=== PATIENT | male | born 1960 | race Caucasian/White ===

== ENCOUNTER 2017-08-21 21:09 | Emergency (ER) | payer OTHER ==
[~2017-08-21] VITALS: Ht 172.7 cm; Wt 78.1 kg
[~2017-08-21 21:09] MED LIST: EASY TOUCH HYP1 EA10 MC; FOLIC ACID1 MG PO; GLUCOMETER MC; NOVOLIN N100 UNITS/ SC; NOVOLIN,HU100 UNITS1 SC; OXAYDO5 MG PO; PRAVACHOL40 MG PO; Thiamine,Vitamin B1 PO
[2017-08-21 22:12] LABS: HEMATOCRIT 42.1 % (38.0-50.0); HEMOGLOBIN 14.7 G/DL (12.5-16.6); MCH 30.2 PG (29.0-34.0); MCHC 34.9 G/DL (30.0-36.0); MCV 86.6 FL (86-99); PLATELET COUNT 225 K/uL (156-360); RBC DIS.WIDTH-SD 40.8 % (39-53); RED BLOOD COUNT 4.86 M/uL (4.00-5.50); WHITE BLOOD COUNT 9.9 K/uL (4.1-10.2)
[2017-08-21] MEDS ORDERED: CLEOCIN300 MG PO (22:43)
[2017-08-21] MEDS ORDERED: BACTROBAN OINTM22 GM TP (22:44)
[2017-08-21 22:45] LABS: ALBUMIN 4.1 g/dL (3.2-4.8)
[2017-08-21 22:46] LABS: CHLORIDE 101 mEq/L (99-109); POTASSIUM 3.9 mEq/L (3.7-5.4); SODIUM 134 mEq/L (136-147)
[2017-08-21 22:48] LABS: TOTAL PROTEIN 7.1 g/dL (6.4-8.3)
[2017-08-21 22:50] LABS: TOTAL BILIRUBIN 0.9 mg/dL (0.0-1.0)
[2017-08-21 22:51] LABS: ALKALINE PHOSPHATASE 111 IU/L (3-129); GLUCOSE 417 mg/dL (70-99)
[2017-08-21 22:53] LABS: AST (GOT) 12 IU/L (2-34); UREA NITROGEN (BUN) 15 mg/dL (9-23)
[2017-08-21 22:55] LABS: ALT (GPT) 15 IU/L (3-49)
[2017-08-21 23:18] LABS: GFR ESTIMATE (CALCULATED) > 59 mL/min/ (58.99-99999)
[2017-08-22] MEDS ORDERED: NORCO 5/3251 TABLET PO (00:02)
[2017-08-22 00:24] VITALS: BP 148/91
== END 2017-08-22 00:25 | disposition home or self-care (01) ==
LOC: EME 21:09
PROVIDERS: Physician Assistant
DX: L03.116 Cellulitis of left lower limb (principal); S90.422A Blister (nonthermal), left great toe, initial encounter; E11.65 Type 2 diabetes mellitus with hyperglycemia; G62.9 Polyneuropathy, unspecified; F17.200 Nicotine dependence, unspecified, uncomplicated
CPT/HCPCS: 80053; 82948; 85027; 99281; 99285; J2405; J3010; J7030

== ENCOUNTER 2017-10-06 14:14 | Emergency (ER) | payer OTHER ==
[~2017-10-06] VITALS: Ht 172.7 cm; Wt 76.5 kg
[~2017-10-06 14:14] MED LIST changes: +BACTROBAN OINTM22 GM TP; +CLEOCIN300 MG PO; +NORCO 5/3251 TABLET PO
[2017-10-06] MEDS ORDERED: ULTRAM50 MG PO (17:21)
[2017-10-06 17:45] VITALS: BP 126/87
== END 2017-10-06 17:47 | disposition home or self-care (01) ==
LOC: EME 14:14
DX: M79.671 Pain in right foot (principal); E11.622 Type 2 diabetes mellitus with other skin ulcer; F17.200 Nicotine dependence, unspecified, uncomplicated
CPT/HCPCS: 82948; 99281; 99284